=== PATIENT | female | born 1990 | race Hispanic/Latino ===

== ENCOUNTER 2018-04-27 22:37 | Observation (INO) | payer OTHER ==
[~2018-04-27] VITALS: Ht 167.6 cm; Wt 84.0 kg
[2018-04-27] MEDS ORDERED: KETOROLAC TROMETHAMINE 30 MG/ML VIAL IV STA (22:53)
[2018-04-27] MEDS ORDERED: ONDANSETRON HCL INJ 2MG/ML 2ML 2 MG/ML VIAL IV STA (22:53)
[2018-04-27] MEDS ORDERED: SODIUM CHLORIDE 0.9% 1000ML 1,000 ML IV SCH ×2 (23:00)
[2018-04-28] VITALS (7 sets, daily range): BP systolic 104–113; BP diastolic 49–57
--- NOTE | 2018-04-28 00:26 | Diagnostic Imaging Report ---
EXAM: CT Abdomen and Pelvis WITH contrast INDICATION: Right lower quadrant pain right COMPARISON: None. TECHNIQUE: Abdomen and pelvis were scanned utilizing a multidetector helical scanner from the lung base to the pubic symphysis after administration of IV contrast. Coronal and sagittal reformations were obtained. Routine protocol was performed. Scan was performed when during portal venous phase. IV CONTRAST: 100 mL of Isovue 370 ORAL CONTRAST: Water COMPLICATIONS: None RADIATION DOSE: Total DLP: 725.6 mGy*cm Estimated effective dose: (DLP x 0.015 x size factor) mSv Dose modulation, iterative reconstruction, and/or weight based adjustment of the mA/kV was utilized to reduce the radiation dose to as low as reasonably achievable. FINDINGS: LINES and TUBES: None. LOWER THORAX: Unremarkable HEPATOBILIARY: No focal hepatic lesions. No biliary ductal dilation. GALLBLADDER: No radio-opaque stones or sludge. No wall thickening. SPLEEN: No splenomegaly. PANCREAS: No focal masses or ductal dilatation. ADRENALS: No adrenal nodules KIDNEYS/URETERS: Kidneys enhance symmetrically. No hydronephrosis. No cystic or solid mass lesions. No stones. GI TRACT: No abnormal distention, wall thickening, or evidence of bowel obstruction. Appendix is dilated to 1.5 cm with wall thickening of approximately 5 mm and fluid-filled. No evidence of perforation or abscess. PELVIC ORGANS/BLADDER: Unremarkable. LYMPH NODES: Prominent right lower quadrant mesenteric nodes measuring up to 1 cm, likely reactive. VESSELS: Unremarkable. PERITONEUM / RETROPERITONEUM: Trace free fluid in the pelvis. No free air. BONES: Unremarkable. SOFT TISSUES: Unremarkable. IMPRESSION: Acute uncomplicated appendicitis. Findings discussed with Dr. Moore on 04/28/2018 at 12:20 AM. Signed by: DR. Jamal Hallman MD on 04/28/2018 12:22 AM
[2018-04-28] MEDS ORDERED: MORPHINE SULFATE INJ 4 MG/ML INJ 1ML IV PRN (00:45)
[2018-04-28] MEDS ORDERED: ONDANSETRON HCL INJ 2MG/ML 2ML 2 MG/ML VIAL IV PRN (00:45)
[2018-04-28] MEDS ORDERED: PIPER-TAZ 3.375 GM 50 ML IV ONE (00:45)
--- OUTSIDE RECORDS SUMMARY | 2018-04-28 02:07 | XMS REPORT ---
Author Author [facility] Address Unknown Phone Unavailable Care Team Providers Care Business Process Expert Name Role Phone Bonifacio ROD Unavailable Unavailable Problems This patient has no known problems. Allergies, Adverse Reactions, Alerts This patient has no known allergies or adverse reactions. Medications This patient has no known medications. Results Test Description Test Time Test Comments Text Results Atomic Results Result Comments CT ABD/PEL WITH CONTRAST-HOPD 2018-04-28 00:14:00 [facility] [address] [address] Patient Name: KAYCEE CASTRO MR #: [id number] : 1990 Age/Sex: 27/F Req #: [id number] Adm Physician: Ordered by: RUSS ROD MD Report #: [id number] Location: [facility] Room/Bed: Procedure: [id number] HOPD/CT ABD/PEL WITH CONTRAST-HOPD Exam Date: 04/27/18 Exam Time: 2345 REPORT STATUS: Signed EXAM: CT Abdomen and Pelvis WITH contrast INDICATION: Right lower quadrant pain right COMPARISON: None. TECHNIQUE: Abdomen and pelvis were scanned utilizing a multidetector helical scanner from the lung base to the pubic symphysis after administration of IV contrast. Coronal and sagittal reformations were obtained. Routine protocol was performed. Scan was performed when during portal venous phase. IV CONTRAST: 100 mL of Isovue 370 ORAL CONTRAST: Water COMPLICATIONS: None RADIATION DOSE: Total DLP: 725.6 mGy*cm Estimated effective dose: (DLP x 0.015 x size factor) mSv Dose modulation, iterative reconstruction, and/or weight based adjustment of the mA/kV was utilized to reduce the radiation dose to as low as reasonably achievable. FINDINGS: LINES and TUBES: None. LOWER THORAX: Unremarkable HEPATOBILIARY: No focal hepatic lesions. No biliary ductal dilation. GALLBLADDER: No radio-opaque stones or sludge. No wall thickening. SPLEEN: No splenomegaly. PANCREAS: No focal masses or ductal dilatation. ADRENALS: No adrenal nodules KIDNEYS/URETERS: Kidneys enhance symmetrically. No hydronephrosis. No cystic or solid mass lesions. No stones. GI TRACT: No abnormal distention, wall thickening, or evidence of bowel obstruction. Appendix is dilated to 1.5 cm with wall thickening of approximately 5 mm and fluid-filled. No evidence of perforation or abscess. PELVIC ORGANS/BLADDER: Unremarkable. LYMPH NODES: Prominent right lower quadrant mesenteric nodes measuring up to 1 cm, likely reactive. VESSELS: Unremarkable. PERITONEUM / RETROPERITONEUM: Trace free fluid in the pelvis. No free air. BONES: Unremarkable. SOFT TISSUES: Unremarkable. IMPRESSION: Acute uncomplicated appendicitis. Findings discussed with Dr. Moore on 04/28/2018 at 12:20 AM. Signed by: DR. Jamal Funk MD on 04/28/2018 12:22 AM Dictated By: JAMAL FUNK MD Transcribed By: SATHISH on 04/28/1821 COPY TO: RUSS ROD MD
--- NOTE | 2018-04-28 02:30 | NUR ---
Admitted to room 181 from [facility] via stretcher. Alert to person, place, time, and situation. Skin warm and intact. VS stable. c/o 4/10 RUQ abdominal pain, sharp. Refuses pain med at this time. PERRLA, wears glasses. 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 +Pedal pulse. Last BM 04/27, brown,formed. Urine geraldine without odor. Abdomen soft, tender to touch. Bowel sounds active x4. Oriented to room. Bed low and locked. Call barone within reach. Will continue to monitor.
[2018-04-28] MEDS: D5.45%NS/KCL 20MEQ 1,000 ML IV SCH ×2 (03:33→10:15)
[2018-04-28] MEDS ORDERED: CEFOXITIN 1GM/ NS 50ML 50 ML IV SCH ×2 (07:00→10:00)
[2018-04-28] MEDS ORDERED: BUPIVACAINE 0.25%/EPI 30ML SDV INJ ONE (11:00)
[2018-04-28] MEDS ORDERED: ACETAMINOPHEN 1000 MG/100 ML IV PRN ×2 (12:15→12:30)
[2018-04-28] MEDS ORDERED: HYDROMORPHONE 1MG/1ML INJ IV PRN (12:15)
[2018-04-28] MEDS ORDERED: HYDROCODONE/APAP 7.5MG-325MG 1 EA TAB PO PRN (12:15)
[2018-04-28] MEDS ORDERED: HYDROMORPHONE 2MG/ML 2 MG/ML ML IV PRN (12:30)
[2018-04-28] MEDS ORDERED: ONDANSETRON HCL INJ 2MG/ML 2ML 2 MG/ML VIAL ONE ×2 (12:43→15:19)
[2018-04-28] MEDS ORDERED: HYDROMORPHONE 2MG/ML 2 MG/ML ML ONE (12:48)
--- NOTE | 2018-04-28 13:22 | NUR ---
Pt arrived from PACU. A&O. No c/o pain at this time. 3 trochar sites noted to abd, CDI. Pt will start on clear liquids. Pt education provided to ambulate, OOB today. Friend and mother at bedside.
--- NOTE | 2018-04-28 13:32 | NUR ---
SOCIAL WORK INITIAL ASSESSMENT Aircraft Delivery Checker to bedside to discuss plan of care with patient/family. CM/SW role and care transitions discussed. Anticipated discharge plan discussed along with duration of care. CM/SW discussed patients right to make decisions in care. CM/SW work hours given. 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 Name and number was also written on the patients whiteboard. Patient verbalized understanding of discussion. CM will follow-up with ongoing discharge and transition of care needs.
[2018-04-28] MEDS ORDERED: LIDOCAINE HCL 2% LOCAL INJ 5 ML SDV VIAL INJ ONE (15:19)
[2018-04-28] MEDS ORDERED: ROCURONIUM BROMIDE 10 MG/ML 5ML VIAL ONE (15:19)
[2018-04-28] MEDS ORDERED: FENTANYL CITRATE/PF 100MCG/2 ML INJ ONE (15:19)
[2018-04-28] MEDS ORDERED: KETAMINE HCL INJ 50 MG/ML 10 ML VIAL ONE (15:19)
[2018-04-28] MEDS ORDERED: NEOSTIGMINE 5 MG/5ML SYR ONE (15:19)
[2018-04-28] MEDS ORDERED: GLYCOPYRROLATE INJ 1MG/ 5 ML SYR ONE (15:19)
[2018-04-28] MEDS ORDERED: SEVOFLURANE INHAL SOLN 250 ML PEN BTL ONE (15:19)
[2018-04-28] MEDS ORDERED: MIDAZOLAM HCL 2 MG/2 ML VIAL ONE (15:19)
[2018-04-28] MEDS ORDERED: DEXAMETHASONE SOD PHOS INJ 4 MG/ML VIAL ONE (15:19)
[2018-04-28] MEDS ORDERED: PROPOFOL IV EMULSION 10 MG/ML 20 ML VIAL ONE (15:19)
[2018-04-28] MEDS: DEXTROSE 5%/LACTATED RINGERS 1,000 ML IV SCH (16:55)
[2018-04-28] MEDS: CEFOXITIN 1GM/ NS 50ML 50 ML IV SCH (17:33)
--- NOTE | 2018-04-28 19:41 | Operative Report ---
DATE OF PROCEDURE: 04/28/2018 SURGEON: Gilles Sevilla MD PREOPERATIVE DIAGNOSIS: Acute appendicitis. POSTOPERATIVE DIAGNOSIS: Acute appendicitis. OPERATION PERFORMED: Laparoscopic appendectomy. ANESTHESIA: General. COMPLICATIONS: None. ESTIMATED BLOOD LOSS: Minimal. DESCRIPTION OF PROCEDURE: With the patient lying in bed in supine position under good general endotracheal anesthesia, the abdomen was prepped with Betadine solution and draped in the usual manner. A Veress needle was introduced into the umbilicus and pneumoperitoneum was established without any difficulty. A 12-mm trocar was placed into the umbilicus and a 10-mm videolaparoscope was placed into the intraabdominal cavity. Under direct vision, two 5-mm trocars were placed in the lower abdomen, one in the left lower quadrant and the other one in the suprapubic region. Videolaparoscopy at this point revealed an acutely inflamed, thickened appendix, but there was no sign of any perforation. The base of the appendix was then dissected and the base of the appendix was then divided with an application of the Endo-CHRISTIANO stapler. The mesentery of the appendix was then divided with an application of the Endo-CHRISTIANO vascular stapler and the appendix was then placed in a pouch and removed through the umbilicus without any difficulty. Videolaparoscopy was then again carried out. Perfect hemostasis was ascertained. All the excess fluid was aspirated. The pneumoperitoneum was evacuated and all the trocars were removed under direct vision. The midline fascia at the umbilicus was then closed with a [id number] of 0 Vicryl. All layers were infiltrated on the way out with solution of 0.25% Marcaine. Subcutaneous tissue was approximated with 3-0 Vicryl and the skin was closed with subcuticular 5-0 Vicryl. Benzoin, Steri-Strips, and Band-Aids were applied. Sponge, lap, and needle count was correct. The patient tolerated the procedure well and returned to the recovery room in stable condition. Gilles Sevilla MD JLR/MODL /[id number]
--- NOTE | 2018-04-28 20:02 | NUR ---
Received report from previous nurse. call light within reach. Patient's family at bedside. No pain or distress noted.
[2018-04-29] VITALS: BP 104/50
[2018-04-29 00:29] VITALS: BP 104/50
[2018-04-29] MEDS: CEFOXITIN 1GM/ NS 50ML 50 ML IV SCH ×2 (00:36→05:24)
[2018-04-29] MEDS: DEXTROSE 5%/LACTATED RINGERS 1,000 ML IV SCH ×2 (03:45→08:56)
[2018-04-29 04:00] VITALS: BP 106/56
[2018-04-29 06:01] LABS: BASOPHILS % 0.2 % (0.0-1.0); EOSINOPHILS % 0.3 % (0.0-6.0); HEMATOCRIT 31.9 % (34.2-44.1); HEMOGLOBIN 10.2 g/dL (12.0-16.0); LYMPHOCYTES % 21.4 % (18.0-39.1); MEAN CORPUSCULAR VOLUME 84.4 fL (81-99); NEUTROPHILS # (AUTO) 6.5 (2.1-6.9); PLATELET COUNT 314 x10e3/uL (140-360); RED BLOOD COUNT 3.78 x10e6/uL (3.6-5.1); RED CELL DISTRIBUTION WIDTH 12.9 % (11.7-14.4)
[2018-04-29 06:30] LABS: ANION GAP 10.3 mmol/L (8-16); BLOOD UREA NITROGEN 6 mg/dL (7-26); BUN/CREATININE RATIO 9 (6-25); CALCIUM 8.7 mg/dL (8.4-10.2); CARBON DIOXIDE 22 mmol/L (22-29); CHLORIDE 109 mmol/L (98-107); CREATININE, SERUM 0.65 mg/dL (0.57-1.11); EST GLOMERULAR FILTRATION RATE > 60 ML/MIN (60-); GLUCOSE 107 mg/dL (74-118); POTASSIUM 4.3 mmol/L (3.5-5.1); SODIUM 137 mmol/L (136-145)
--- NOTE | 2018-04-29 07:00 | NUR ---
Gave report to oncoming nurse. Patient in bed. Patient in no pain or distress. call light within reach. is at the bedside
[2018-04-29 08:53] VITALS: BP 107/55
[2018-04-29 12:00] VITALS: BP 118/58
[2018-04-29] MEDS ORDERED: TYLENOL WITH C1 EACH PO (13:10)
[2018-04-29] MEDS ORDERED: AUGMENTIN 500-1 EACH PO (13:13)
[2018-04-29] MEDS ORDERED: PIPERACILLIN/TAZO 2.25 GM 50 ML IV ONE (14:00)
== END 2018-04-29 15:00 | disposition home or self-care (01) ==
LOC: FSED 22:37 → ERHOLD 04-28 00:43 → INTOOBSV 04-28 00:43 → UNDOADMOB 04-28 00:43 → IMCU 04-28 03:00
PROVIDERS: ADMIT Surgery; ATTEND Surgery
DX: K35.30 Acute appendicitis with localized peritonitis, without perforation or gangrene (principal)
CPT/HCPCS: 36415; 44970; 74177; 80048; 80053; 81003; 81025; 85025 ×2; 88304; 99284; C1766; G0378 ×2; J1100; J1170; J2001; J2250; J2405; J2543; J2704; J3490; J7121